=== PATIENT | male | born 1980 | race Caucasian/White ===

== ENCOUNTER 2022-04-16 15:38 | Emergency (ER) | payer SELFPAY ==
[2022-04-16 15:49] VITALS: BP 123/68; PULSE 59; RESP 16; TEMP 36.4; O2SAT 100
--- NOTE | 2022-04-16 15:53 | ED.GENADULT ---
HPI - General Adult General Chief complaint: Extremity Injury, Upper Stated complaint: lt hand index finger injury Source: patient Mode of arrival: ambulatory Limitations: no limitations History of Present Illness HPI narrative: Patient presents for evaluation of laceration to the left index finger that occurred just prior to arrival. He was working on denis at home when he accidentally cut his left index finger with a knife. No loss of range of motion. No paresthesias. He has a minor amount of pain in the affected area. No descriptive quality or numerical rating to the pain. Date of last tetanus unknown. He is right-hand dominant. He is also concerned about intermittent swelling in the hair follicles within his nostrils bilaterally. States symptoms come and go and get cannot identify ay precipitating event. He has tried placing vaseline in his nostrils which seems to help. Related Data Allergies Allergy/AdvReac Type Severity Reaction Status Date / Time No Known Allergies Allergy Mild Unverified 04/16/22 15:42 Review of Systems Review of Systems: CONSTITUTIONAL: Denies fever, chills, or sweats. EYES: Denies visual changes, redness, or discharge. ENT: Reports intermittent swelling around hair follicles in his nostrils. Denies rhinorrhea, congestion, sore throat, or otalgia. CARDIOVASCULAR: Denies chest pain, palpitations, or edema. RESPIRATORY: Denies cough or dyspnea. GASTROINTESTINAL: Denies abdominal pain, nausea, vomiting, or diarrhea. GENITOURINARY: Denies dysuria or hematuria. SKIN: Reports laceration to the left index finger MUSCULOSKELETAL: reports pain in left index finger. Denies back pain NEUROLOGIC: Denies headache, numbness, dizziness, or weakness. PSYCHIATRIC: Denies anxiety or depression. [facility] Past Medical History Medical History No pertinent past medical history Surgical History Surgical History No pertinent past surgical history Family History Family History Father Family history non-contributory Social History Social History (Updated 04/16/22 @ 16:41 by VICKIE Oakley, [place]) Smoking status: Never smoker Alcohol intake: current Substance use: never Gender identity (if verbalized by the patient): Male Sexual Orientation (if Verbalized by the Patient): Straight or Heterosexual Spiritual care concerns: No Exam Narrative: GENERAL: Well-appearing, well-nourished, and in no acute distress. HEAD: Normocephalic, atraumatic. EYES: PERRLA and EOMI. ENT: Nares clear, no rhinorrhea or epistaxis. Mucous membranes moist. Oropharynx without tonsillar hypertrophy exudate or other lesions. Bilateral TMs pearly buenrostro nonbulging NECK: Supple. No adenopathy or masses. No carotid bruits or JVD CHEST: Clear to auscultation. No respiratory distress. No wheezes rales or rhonchi HEART: Regular rate and rhythm. No murmur heard. Normal peripheral pulses. ABDOMEN: Soft, nontender, nondistended, normal active bowel sounds. EXTREMITIES: Normal range of motion. No edema. SKIN: approximately 3 cm linear laceration to the left index finger. This is covered in dry bandage which was removed for examinatio NEURO: No focal deficits. Alert and oriented x3. PSYCH: Normal mood and affect. Course Course Emergency Course: This is a 41-year-old male who presented for evaluation of laceration to left index finger. There is low clinical suspicion for retained foreign body are open fracture. Wound was closed and patient tolerated well. He was updated on tetanus. He is provided with a finger splint. Advised on wound care. Was also provided with a prescription for mupirocin for lesions he has been experiencing in his nares. He should follow up with primary provider. he was given the contact information for [facility]
[2022-04-16] MEDS: LIDOCAINE HCL 1% LOCAL INJ 2 ML AMPUL 10 ML INFILTRATE (16:12)
[2022-04-16] MEDS: TETANUS,DIPHTHERIA,AC PERTUSSIS ADULT (0.5 ML) BOOSTRIX IM (16:40)
== END 2022-04-16 16:47 | disposition home or self-care (01) ==
PROVIDERS: Emergency Provider Nurse Practitioner
DX: S61.211A Laceration without foreign body of left index finger without damage to nail, initial encounter (principal); W26.0XXA Contact with knife, initial encounter; Z23 Encounter for immunization
CPT/HCPCS: 12002; 90471; 90715; 99203; G0463